=== PATIENT | male | born 1950 | race Caucasian/White ===

== ENCOUNTER → 2019-07-28 09:20 | Outpatient (CLI) | payer MEDICARE, MEDICAID, SELFPAY ==
--- NOTE | 2019-07-28 | DI.NM.S_ITS ---
PROCEDURE: NM ZUNILDA PERF SPECT R&S PHARM Rest and pharmacological stress myocardial perfusion SPECT with gated imaging and ejection fraction RADIOPHARMACEUTICAL: 13.1 mCi Tc-99m tetrafosmin IV at rest and 25.2 mCi Tc-99m tetrafosmin IV at peak effect of pharmacological stress. [id number] was performed. INDICATIONS: Chest pain, unspecified TECHNIQUE: Radiopharmaceutical was injected at peak stress test, and also at rest. SPECT images were obtained. SPECT myocardial perfusion images were displayed in short axis, horizontal long axis, and vertical long axis views. Gated images were reviewed using [employer] software. COMPARISON: None. CARDIAC STRESS: A pharmacologic stress test was performed under the supervision of an attending staff, using an infusion of lexiscan 0.4mg IV X1. Hemodynamic data: There is normal blood pressure and heart rate response to pharmacologic stress. Symptoms: The patient denied anginal chest pain. Aminophylline: none EKG: Atrial fibrillation present througout the study. No diagnostic changes of ischemia. FINDINGS: Raw data: There is good myocardial uptake of radiotracer. No significant motion artifacts. Fjep-mf-kgkcv ratio is 0.31 (normal is less than 0.38 for tetrafosmin tracer). Left ventricle function: Gated images demonstrate normal left ventricular wall thickening. No segmental wall motion abnormalities. No transient ischemic dilation; TID is 1.05 (normal less than 1.3). Left ventricle resting end diastolic volume is 152 mL. Left ventricle stress ejection fraction is 70%; normal range is above 45%. Myocardial perfusion: There is a mildly to moderately intense fixed defect in the inferior wall that appears more likely diaphragmatic attentuation but prior non-transmural infarct can't be excluded. SSS 1. Prone images not obtained due back and neck pain. IMPRESSION: low risk, probably normal pharmaceutical nuclear stress from ischemic heart disease standpoint. Mildly enlarged LV with normal function. 1) Probably normal perfusion study. There is a mildly to moderately intense fixed defect in the inferior wall that appears more likely diaphragmatic attentuation but prior non-transmural infarct can't be excluded. SSS 1. Prone images not obtained due back and neck pain. 2) Mildly enlarged left ventricle (LVEDV 152cc) with normal wall motion and normal systolic function (EF post stress 70%). 3) No ECG evidence of ischemia. Atrial fibrillation present throughout the study. 4) No angina during the study. 5) No prior nuclear stress test available for comparison. Dictated by: Casie Kim MD on 07/28/2019 at 16:25 Approved by: Casie Kim MD on 07/28/2019 at 16:29
--- NOTE | 2019-07-28 15:08 | PM.TREADMILL ---
Cardiac Stress Test Report Referral & Results Date Patient Seen: 07/28/19 Requesting provider: Hernan Jones Indication: Atrial fibrillation, chest discomfort Rest ECG: Atrial fibrillation with variable ventricular response Procedure Note: After both written and verbal informed consent the patient had an IV started by the diagnostic imaging RN, and then was hooked up to the treadmill monitoring system. The Lexiscan material, and then the Cardiolite tracer, were administered sequentially. An additional 3 min was spent monitoring the patient while supine on the gurney. The patient had a normal response to all infused materials. Impression: Normal response as above. Please see perfusion imaging report for details regarding possible ischemia Please note: Actual ECG tracings can be found in the PACS system.
== END ==
PROVIDERS: PCP Student in an Organized Health Care Education/Training Program; Visit Provider Student in an Organized Health Care Education/Training Program
DX: R07.89 Other chest pain (principal); I48.91 Unspecified atrial fibrillation
CPT/HCPCS: 78452; 93016; 93017; 93018; A9502; J2785